=== PATIENT | female | born 1995 | race Native Hawaiian/Other Pacific Islander ===

== ENCOUNTER 2017-07-16 07:05 | Outpatient (CLI) | payer OTHER | END 2017-07-16 07:06 | disposition EMS.NT | LOC: EMS 07:05 | PROVIDERS: ATTEND Surgery | DX: R07.89 Other chest pain (principal); V47.0XXA Car driver injured in collision with fixed or stationary object in nontraffic accident, initial encounter; Y92.413 State road as the place of occurrence of the external cause ==

== ENCOUNTER 2018-02-07 08:00 | Outpatient (CLI) | payer MEDICAID ==
[2018-02-07 13:21] LABS: HCG,QUALITATIVE BLOOD NEGATIVE
[2018-02-07 13:26] LABS: THYROID STIMULATING HORMONE 0.66 uIU/mL (0.34-5.60)
[2018-02-07 13:31] LABS: PROLACTIN 16.81 ng/mL
[2018-02-07 13:54] LABS: FOLLICLE STIMULATING HORMONE 2.29 mIU/mL
== END 2018-02-07 08:01 | disposition home or self-care (01) ==
LOC: LAB.WCP 08:00
PROVIDERS: ATTEND Family Medicine
DX: N91.2 Amenorrhea, unspecified (principal)
CPT/HCPCS: 36415; 82670; 83001; 84146; 84443; 84703

== ENCOUNTER 2018-02-22 08:00 | Outpatient (CLI) | payer SELFPAY | END 2018-02-22 08:01 | disposition home or self-care (01) | LOC: LAB.WCP 08:00 | PROVIDERS: ATTEND Family Medicine | DX: N91.2 Amenorrhea, unspecified (principal) | CPT/HCPCS: 36415; 82670 ==

== ENCOUNTER 2018-09-15 08:00 | Outpatient (CLI) | payer SELFPAY | END 2018-09-15 23:59 | disposition home or self-care (01) | LOC: LAB.R 08:00 | PROVIDERS: ATTEND Family Medicine | DX: N76.0 Acute vaginitis (principal); Z11.3 Encounter for screening for infections with a predominantly sexual mode of transmission | CPT/HCPCS: 87480; 87491; 87510; 87591; 87660 ==

== ENCOUNTER 2019-06-12 07:00 | Outpatient (CLI) | payer MEDICAID | END 2019-06-12 23:59 | disposition home or self-care (01) | LOC: LAB.R 07:00 | PROVIDERS: ATTEND Physician Assistant | DX: R30.0 Dysuria (principal) | CPT/HCPCS: 87086 ==

== ENCOUNTER 2024-02-21 17:25 | Emergency (ER) | payer MEDICAID ==
--- NOTE | 2024-02-21 18:19 | ED Physician Documentation ---
History of Present Illness - Stated complaint Stated Complaint: N/V - Chief complaint Chief Complaint: Abd Pain - Additonal information Additional information: 28-year-old female G3, P0 presents emergency department for persistent nausea vomiting. Patient says that she took an at home test today and despite that she is she is unsure when her last period was but it was sometime in December and she skipped her January menses. She says that with her last 2 pregnancies she had abortions but while she was with both of those pregnancies she did have hyperemesis gravidarum. She has not followed up with OB as she does feel that she is today. She denies any abdominal pain no cramping no vaginal discharge or vaginal bleeding. 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: No Does the pt have substance abuse?: No - Immunizations Immunizations are current?: Yes - POLST Patient has POLST: No PD ED PE NORMAL - Vitals Vital signs reviewed: Yes - General General: Alert and oriented X 3, No acute distress, Well developed/nourished - HEENT HEENT: Atraumatic, PERRL - Neck Neck: Supple, no meningeal sign - Cardiac Cardiac: RRR - Respiratory Respiratory: No respiratory distress, Clear bilaterally - Abdomen Abdomen: Normal bowel sounds, Soft, Non tender, Non distended, No organomegaly - Back Back: No CVA TTP - Derm Derm: Normal color, Warm and dry, No rash - Extremities Extremities: No edema, No calf tenderness / cord Results - Vitals Vitals: Oxygen O2 Source Room air - Labs Labs: Laboratory Tests 02/21/24 02/21/24 02/21/24 17:56 17:56 17:56 WBC 21.9 H RBC 4.07 L Hgb 12.2 Hct 37.2 MCV 91.4 MCH 30.0 MCHC 32.8 RDW 12.0 Plt Count 544 H MPV 8.9 Neut # (Auto) Not Reportable Lymph # (Auto) Not Reportable Dickens # (Auto) Not Reportable Eos # (Auto) Not Reportable Baso # (Auto) Not Reportable Absolute Nucleated RBC Not Reportable Total Counted 100 Band Neuts % (Manual) 2 Abnorm Lymph % (Manual) 0 Nucleated RBC % Not Reportable Neutrophils # (Manual) 21.0 H Lymphocytes # (Manual) 0.4 L Monocytes # (Manual) 0.4 Eosinophils # (Manual) 0.0 Basophils # (Manual) 0.0 Differential Comment MANUAL DIFFERENTIAL Platelet Estimate INCREASED (>450,000) Platelet Morphology NORMAL APPEARANCE RBC Morph Micro Appear NORMAL APPEARANCE Sodium 136 Potassium 3.4 L Chloride 102 Carbon Dioxide 23 Anion Gap 11.0 BUN 16 Creatinine 0.6 Estimated GFR (MDRD) 118 Glucose 154 H Calcium 9.9 Total Bilirubin 1.0 AST 15 ALT 16 Alkaline Phosphatase 35 L Total Protein 7.6 Albumin 5.0 Globulin 2.6 Albumin/Globulin Ratio 1.9 Lipase < 10 L Serum HCG, Qual POSITIVE Urine Color Urine Clarity Urine pH Ur Specific [place] Urine Protein Urine Glucose (UA) Urine Ketones Urine Occult Blood Urine Nitrite Urine Bilirubin Urine Urobilinogen Ur Leukocyte Esterase Ur Microscopic Review Urine Culture Comments Urine HCG, Qual 02/21/24 19:30 WBC RBC Hgb Hct MCV MCH MCHC RDW Plt Count MPV Neut # (Auto) Lymph # (Auto) Dickens # (Auto) Eos # (Auto) Baso # (Auto) Absolute Nucleated RBC Total Counted Band Neuts % (Manual) Abnorm Lymph % (Manual) Nucleated RBC % Neutrophils # (Manual) Lymphocytes # (Manual) Monocytes # (Manual) Eosinophils # (Manual) Basophils # (Manual) Differential Comment Platelet Estimate Platelet Morphology RBC Morph Micro Appear Sodium Potassium Chloride Carbon Dioxide Anion Gap BUN Creatinine Estimated GFR (MDRD) Glucose Calcium Total Bilirubin AST ALT Alkaline Phosphatase Total Protein Albumin Globulin Albumin/Globulin Ratio Lipase Serum HCG, Qual Urine Color YELLOW Urine Clarity CLEAR Urine pH 6.5 Ur Specific [place] 1.025 Urine Protein NEGATIVE Urine Glucose (UA) 100 H Urine Ketones 40 H Urine Occult Blood TRACE-LYSE Urine Nitrite NEGATIVE Urine Bilirubin NEGATIVE Urine Urobilinogen 0.2 (NORMAL) Ur Leukocyte Esterase NEGATIVE Ur Microscopic Review NOT INDICATED Urine Culture Comments NOT INDICATED Urine HCG, Qual POSITIVE PD Medical Decision Making - ED course ED course: 28-year-old female presents emergency department for nausea and vomiting. Labs are complete for further evaluation she does have significant leukocytosis WBC 21.9 as well as elevated platelet count at 544. No other significant electrolyte abnormalities serum hCG is positive urinalysis is negative for leukocytes or nitrates making me less concerned and suspicious for possible urinary tract infection. Patient received a liter of IV fluids here in the emergency department as well as some Zofran as well as a take-home pack of Zofran. Patient was able to tolerate water and did report that she had significant improvement of symptoms. She is told to follow-up with [facility] outpatient for further evaluation again she denies any abdominal pain pelvic cramping or vaginal bleeding or discharge. She was also given a prescription for Zofran sent to her preferred outpatient pharmacy. All questions have been answered patient is safe for discharge at this time return precautions given. Departure - Departure Disposition: 01 Home, Self Care Clinical Impression: First trimester , Hyperemesis affecting , antepartum Instructions: Hyperemesis, ED Preg Morning Sickness Follow-Up: Noemy Monaco MD [Provider Admit Priv/Credential] - Prescriptions: Ondansetron Odt [Zofran Odt] 4 mg TL Q6H PRN #10 tablet PRN Reason: Nausea / Vomiting Comments: Thank you for trusting us with your care. You are please follow-up with [facility] outpatient their contact information is almost paperwork. Have sent a prescription of Zofran to your pharmacy. Make sure that you are drinking plenty of fluids going home Forms: PCP List Discharge Date/Time: 02/21/24 20:12
[2024-02-21 18:23] LABS: BASOPHILS % (AUTO) 0.2 %; HCT - HEMATOCRIT 37.2 % (37.0-47.0); HGB - HEMOGLOBIN 12.2 g/dL (12.0-16.0); MEAN CORPUSCULAR HGB CONC 32.8 g/dL (32.0-36.0); MEAN CORPUSCULAR VOLUME 91.4 fL (81.0-99.0); MEAN PLATELET VOLUME 8.9 fL (7.9-10.8); MONOCYTES % (AUTO) 1.5 %; NEUTROPHILS % (AUTO) 91.7 %; PLT - PLATELET COUNT 544 10^3/uL (130-450); RED BLOOD COUNT 4.07 10^6/uL (4.20-5.40); WHITE BLOOD COUNT 21.9 x10^3/uL (4.8-10.8)
[2024-02-21] MEDS: ONDANSETRON 4 MG/2 ML VIAL IVP STA (18:30)
[2024-02-21] MEDS: SODIUM CHLORIDE 0.9% 1,000 ML IV ONE (18:31)
[2024-02-21 18:33] LABS: ABNORMAL LYMPHS % (MANUAL) 0 %
[2024-02-21 18:45] LABS: ALBUMIN/GLOBULIN RATIO 1.9 (1.0-2.2); ALKALINE PHOSPHATASE 35 IU/L (42-121); ALT ALANINE AMINOTRANSFERASE 16 IU/L (10-60); AST ASPARTATE AMINOTRANSFERASE 15 IU/L (10-42); BUN - BLOOD UREA NITROGEN 16 mg/dL (6-20); CALCIUM 9.9 mg/dL (8.5-10.3); CARBON DIOXIDE - CO2 23 mmol/L (21-32); CHLORIDE 102 mmol/L (101-111); CREATININE 0.6 mg/dL (0.6-1.3); GFR - MDRD 118 (>89); GLUCOSE 154 mg/dL (74-104); POTASSIUM 3.4 mmol/L (3.5-4.5); SODIUM 136 mmol/L (135-145); TOTAL PROTEIN 7.6 g/dL (6.4-8.9)
[2024-02-21 18:54] LABS: LIPASE < 10 U/L (11-82)
[2024-02-21 19:00] LABS: BAND NEUTROPHILS % (MANUAL) 2 %; LYMPHOCYTES # (MANUAL) 0.4 10^3/uL (1.5-3.5); LYMPHOCYTES % (MANUAL) 2 %; MONOCYTES # (MANUAL) 0.4 10^3/uL (0.0-1.0)
[2024-02-21 19:01] LABS: DIFFERENTIAL COMMENT MANUAL DIFFERENTIAL; PLATELET ESTIMATE, MANUAL INCREASED (>450,000) (NORMAL); PLATELET MORPHOLOGY NORMAL APPEARANCE (NORMAL); RBC MORPHOLOGY (MULTIPLE) NORMAL APPEARANCE (NORMAL)
[2024-02-21 19:34] LABS: HCG,QUALITATIVE BLOOD POSITIVE
[2024-02-21 19:39] LABS: BILIRUBIN,URINE NEGATIVE (NEGATIVE); GLUCOSE, URINE (UA) 100 mg/dL (NEGATIVE); KETONES,URINE (UA) 40 mg/dL (NEGATIVE); LEUKOCYTE ESTERASE, URINE NEGATIVE (NEGATIVE); NITRITE,URINE NEGATIVE (NEGATIVE); OCCULT BLOOD,URINE TRACE-LYSE (NEGATIVE); PH,URINE 6.5 PH (5.0-7.5); PROTEIN,URINE NEGATIVE (NEGATIVE); UROBILINOGEN,URINE 0.2 (NORMAL) E.U./dL (NORMAL)
[2024-02-21 19:43] LABS: CLARITY,URINE CLEAR (CLEAR)
[2024-02-21 19:44] LABS: HCG UR QUAL POSITIVE
[2024-02-21] MEDS: ONDANSETRON ODT 4 MG Prepack 2 TL PRN (20:06)
[2024-02-21 20:19] VITALS: BP 122/68; O2SAT 99
== END 2024-02-21 20:12 | disposition home or self-care (01) ==
LOC: ED 17:25
DX: O21.0 Mild hyperemesis gravidarum (principal); Z3A.01 Less than 8 weeks gestation of pregnancy
CPT/HCPCS: 36415; 80053; 81003; 81025; 83690; 84703; 85025; 96374; 99283; 99284; A9270; 81001; 87086